=== PATIENT | male | born 1980 | race Caucasian/White ===

== ENCOUNTER 2018-03-26 06:42 | Inpatient (IN) ==
[2018-03-26] MEDS ORDERED: Ondansetron 4 MG/2 ML VIAL IVP ONE ×2 (07:23→09:19)
[2018-03-26] MEDS ORDERED: *HR* FentaNYL (PF) 100 MCG/2 ML VIAL IVP ONE ×2 (07:23→08:03)
--- NOTE | 2018-03-26 07:27 | Emergency Department Note ---
Disposition Clinical Impression: Abdominal pain Qualifiers: Abdominal location: unspecified location Qualified Code(s): R10.9 - Unspecified abdominal pain Cholelithiasis Qualifiers: Cholelithiasis location: gallbladder Cholecystitis presence: without cholecystitis Biliary obstruction: without biliary obstruction Qualified Code(s) : K80.20 - Calculus of gallbladder without cholecystitis without obstruction Leukocytosis Qualifiers: Leukocytosis type: unspecified Qualified Code(s): D72.829 - Elevated white blood cell count, unspecified Disposition: Admitted As Inpatient Condition: Fair Referrals: NONE,PCP [Primary Care Provider] - Mari León [Family Provider] - Forms: ED Satisfaction Letter, Work/School Release Time of Disposition: 10:17 General Adult HPI - General Chief complaint: ED Abdominal Pain Stated complaint: abdominal pains Time Seen by Provider: 03/26/18 06:59 Source: patient Mode of arrival: ambulatory Limitations: no limitations Nursing Notes Reviewed: Yes Vital Signs Reviewed: Yes - History of Present Illness HPI Narrative: Patient is a 37-year-old male that presents the emergency department for abdominal pain. Patient starts that it be N at approximately 0200 this morning. Patient states that is located in the epigastric region and radiates into his back. Patient states that he has never had any pain like this before. Patient states that as a sharp pain. Patient states that he has a history of peptic ulcer disease and GERD. States that this does not feel anything like his previous peptic ulcer. Patient states his pain as a 10 out of 10. Patient states that last night he did have margaritas and went out to dinner around 1900. Patient states that the pain woke him up from sleep. Patient denies any chest pain but states that he has some mild shortness of breath secondary to abdominal pain. Pain Scale: 10 - Related Data Allergies Allergy/AdvReac Type Severity Reaction Status Date / Time Sulfa (Sulfonamide AdvReac See Verified 03/26/18 06:43 Antibiotics) Comments All systems ED: reviewed and negative except as stated. Cardiovascular: Denies: chest pain Respiratory: Reports: dyspnea Gastrointestinal: Reports: abdominal pain, nausea, vomiting Past Medical History - Past Medical History Medical history: Reports: GERD Psychiatric history: Reports: no psych history - Social History Smoking Status: Current some day smoker Smokeless Tobacco Status: No Alcohol use: Reports: none Drug use: Reports: none Physical Exam - General Limitations: no limitations General appearance: alert, in no apparent distress - Head Head exam: atraumatic, normocephalic - Eye Eye exam: Present: normal appearance, EOMI - Neck Neck exam: Present: normal inspection, full ROM, trachea midline - Respiratory Respiratory exam: Present: normal lung sounds bilaterally. Absent: respiratory distress, wheezes - Cardiovascular Cardiovascular exam: Present: regular rate, normal rhythm, normal heart sounds, +S1, +S2 - Abdominal Exam Abdominal exam: Present: soft, tenderness, normal bowel sounds Abdominal tenderness: Present: RUQ, epigastrium, moderate - Neurological Exam Neurological exam: Present: alert, oriented X3 - Psychiatric Psychiatric exam: Present: normal affect, normal mood - Skin Skin exam: Present: warm, dry, intact Course Vital Signs Temperature 97.9 F 03/26/18 06:50 Pulse Rate 94 03/26/18 06:50 Respiratory Rate 20 03/26/18 06:50 Blood Pressure 136/84 03/26/18 06:50 O2 Sat by Pulse Oximetry 100 03/26/18 06:50 Temperature 97.9 F 03/26/18 06:50 Pulse Rate 94 03/26/18 06:50 Respiratory Rate 20 03/26/18 06:50 Blood Pressure 136/84 03/26/18 06:50 O2 Sat by Pulse Oximetry 100 03/26/18 06:50 Oxygen Delivery Oxygen Delivery Room Air Medical Decision Making - [facility] Narrative Medical decision making narrative: Due to the patient presenting to the emergency department with significant abdominal pain in his epigastrium and right upper quadrant history of peptic ulcer disease there is a concern for possible worsening of his peptic ulcer disease, pancreatitis or gallbladder issue. We will obtain basic laboratory testing, EKG and a CT of the abdomen and pelvis. The patient will be provided analgesics and antiemetics here in the emergency department. Patient's CT scan showed cholelithiasis. A gallbladder ultrasound will be obtained. This did show evidence of a cholelithiasis without evidence of cholecystitis. The bile duct is 5.4 mm. I called and spoke with Dr. Nagy the on-call surgeon and he will see the patient in consult. Patient will need to be admitted to the hospital for pain control. Dr Nagy request that the patient be admitted to the medical service. Called and spoke the admitting hospitalist Dr. Watson and he has accepted the patient to their service. Patient be admitted to the hospital this time for further evaluation and management. 0800 hrs.: Patient's labs are coming back. He is scheduled leukocytosis. Still having pain on him another dose of pain medication waiting on CT. Abdomen/Pelvis CT 03/26/18 07:23 IMPRESSION: Cholelithiasis without evidence of acute cholecystitis. Ultrasound could always be considered to further evaluate if clinically indicated. Diffuse hepatic steatosis. Small lymph nodes within the margarita hepatic region nonspecific, possibly related to underlying hepatic dysfunction. No acute intra-abdominal or intrapelvic abnormality noted. D/ / 03/26/2018 08:22:15 Isaac Wright MD / Elizabeth Lazo Interpreting Provider: Isaac Wright MD 0827 hrs.: Since he has not eaten since last evening and the results of the CT work in order an ultrasound on him also. Once those results are back. We can discuss them with surgery. 0925 hrs.: Patient got another dose of pain medication then he is going over for ultrasound. Then we will discuss him with surgery. Most likely he will need admission for pain control. - Medical Records Medical records reviewed: Yes I reviewed the patient's medical records. - Lab Data Lab results reviewed: Yes I reviewed the patient's lab results. Result diagrams: 03/26/18 07:02 03/26/18 07:02 Lab Results 03/26/18 03/26/18 Range/Units 07:02 07:02 WBC 12.0 H (4.3-11.1) K/mcL RBC 5.81 H (4.19-5.50) M/mcL Hgb 16.6 (12.9-16.9) g/dL Hct 51.2 H (37.5-50.1) % MCV 88.1 (83.0-100.0) fL MCH 28.6 (28.0-33.3) pg MCHC 32.4 (31.6-35.5) g/dL RDW 13.5 (11.5-14.5) % Plt Count 241 (140-400) K/mcL MPV 11.2 (9.4-12.4) fL Immature Gran % 0.5 (0-4) % Seg Neutrophils % 65.2 % Lymphocytes % 24.7 % Monocytes % 7.7 % Eosinophils % 1.2 % Basophils % 0.7 % Neutrophils # 7.8 (1.6-8.9) K/mcL Lymphocytes # 3.0 (0.6-4.6) K/mcL Monocytes # 0.9 (0.0-1.3) K/mcL Eosinophils # 0.1 (0.0-0.6) K/mcL Basophils # 0.1 (0.0-0.2) K/mcL Sodium 140 (136-145) mEq/L Potassium 4.3 (3.5-5.1) mEq/L Chloride 104 (98-107) mEq/L Carbon Dioxide 27 (23-29) mEq/L BUN 22 H (6-20) mg/dL Creatinine 1.02 (0.70-1.30) mg/dL Est GFR ( Amer) > 60 (> 60) Est GFR (Non-Af Amer) > 60 (> 60) BUN/Creatinine Ratio 22 (6-26) Glucose 118 H (70-105) mg/dL Calculated Osmolality 294 (280-300) Calcium 9.9 (8.6-10.3) mg/dL Total Bilirubin 0.3 (0.3-1.0) mg/dL Direct Bilirubin 0.1 (0.0-0.2) mg/dL Indirect Bilirubin 0.2 (0.0-1.2) mg/dL AST 21 (13-39) Units/L ALT 74 H (7-52) Units/L Alkaline Phosphatase 74 (34-104) Units/L Serum Total Protein 7.7 (6.4-8.9) g/dL Albumin 4.6 (3.5-5.7) g/dL Globulin 3.1 (2.4-3.5) g/dL Albumin/Globulin Ratio 1.5 (1.1-2.2) Lipase 24 (11-82) Units/L - Radiology Data Radiology results reviewed: Yes I reviewed the patient's radiology results. - EKG Data EKG #1 EKG attestation: Yes I reviewed and interpreted this EKG. EKG results narrative: EKG shows a sinus rhythm at a rate of 89 beats from it, DC interval 140, QRS duration of 90, QTc of 453. No evidence of STEMI on EKG. Attestation Statement - Attestation Attestation: This documentation is done with the assistance of Dragon dictation. Despite efforts made to ensure accuracy, there may be inaccuracies in buckle coverer or spelling and typographical errors. I examined this patient and my medical decision-making was reviewed with the Resident Physician. I agree with the documented findings, disposition and treatment plan as described except to the extent set forth below. Patient seen and evaluated by Dr. Nguyen and myself, I agree with his evaluation and management plan, I supervised the care the patient's stay. Patient resents with epigastric pain with no radiations been on some last evening. No history of abdominal problems. He has no chest pain he has no back pain no difficulty urination. His nonsurgical abdomen but does have tenderness. We will give him something make him more comfortable CT his abdomen check labs and urine and reassess. He is in agreement with plan.
[2018-03-26 07:49] LABS: Alanine Aminotransferase 74 Units/L (7-52); Albumin 4.6 g/dL (3.5-5.7); Albumin/Globulin Ratio 1.5 (1.1-2.2); Alkaline Phosphatase 74 Units/L (34-104); Aspartate Amino Transferase 21 Units/L (13-39); BUN/Creatinine Ratio 22 (6-26); Bilirubin,Direct 0.1 mg/dL (0.0-0.2); Bilirubin,Indirect 0.2 mg/dL (0.0-1.2); Bilirubin,Total 0.3 mg/dL (0.3-1.0); Blood Urea Nitrogen 22 mg/dL (6-20); Calcium 9.9 mg/dL (8.6-10.3); Carbon Dioxide 27 mEq/L (23-29); Chloride 104 mEq/L (98-107); Globulin 3.1 g/dL (2.4-3.5); Glucose 118 mg/dL (70-105); Lipase 24 Units/L (11-82); Osmolality,Calculated 294 (280-300); Potassium 4.3 mEq/L (3.5-5.1); Sodium 140 mEq/L (136-145); Total Protein 7.7 g/dL (6.4-8.9); eGFR For Non-African Americans > 60 (> 60)
[2018-03-26 07:56] LABS: Basophils # 0.1 K/mcL (0.0-0.2); Basophils % 0.7 %; Eosinophils # 0.1 K/mcL (0.0-0.6); Eosinophils % 1.2 %; Hematocrit 51.2 % (37.5-50.1); Hemoglobin 16.6 g/dL (12.9-16.9); Immature Granulocytes % 0.5 % (0-4); Lymphocytes % 24.7 %; Mean Corpuscular HGB Conc 32.4 g/dL (31.6-35.5); Mean Corpuscular Hemoglobin 28.6 pg (28.0-33.3); Mean Corpuscular Volume 88.1 fL (83.0-100.0); Mean Platelet Volume 11.2 fL (9.4-12.4); Monocytes # 0.9 K/mcL (0.0-1.3); Monocytes % 7.7 %; Neutrophils # 7.8 K/mcL (1.6-8.9); Platelet Count 241 K/mcL (140-400); Red Blood Count 5.81 M/mcL (4.19-5.50); Red Cell Distribution Width 13.5 % (11.5-14.5); Segmented Neutrophils % 65.2 %
[2018-03-26] MEDS ORDERED: *HR* HYDROmorphone (PF) 1 MG/ML SYRINGE IVP ONE (09:14)
[2018-03-26] MEDS ORDERED: Hyoscyamine SL 0.125 MG TAB.SUBL SL STA (10:36)
--- NOTE | 2018-03-26 11:05 | Internal Med History&Physical ---
Date of Encounter: 03/26/18 Time of Encounter: 11:00 Internal Medicine - H&P: HPI Chief complaint: abdominal pain History of present illness: Mr. Stacy is a 37 year old male with past medical history of chronic back pain, hiatal hernia came in with complain of abdominal pain. Patient ate around 7 PM yesterday. He started having abdominal pain around 2 AM this morning. Pain is constant and nonradiating most severe in epigastric region about 10 x 10 in intensity. As the pain did not resolve by the morning patient came to ER. Patient has a history of gastric ulcer and hiatal hernia diagnosed in 2010 and he is taking omeprazole for that. Patient does take Aleve to 2 tablets every day for his chronic back pain. Denies any constipation or diarrhea or change in color of stool. Denies any similar pain in the past. The pain woke him from sleep. Denies any chest pain bowel or urinary complaints. No palpitations headache or difficulty breathing or lightheadedness. Patient had one episode of vomiting in ER. Denies any nausea during the time of injury. Denies any fevers or chills. In ER patient was noted to have cholelithiasis without cholecystitis on CAT scan and ultrasound. No free air in the abdomen or ascites. Common bile duct 5.4 mm on ultrasound. Negative Stout sign. Diffuse hepatic steatosis noted. Patient's received Zofran for vomiting. and Dilaudid and fentanyl for pain control Past Med Surg Social Fam HX - Past Medical History Medical history: GERD Additional medical history: hiatal hernia Psychiatric history: no psych history - Past Surgical History Additional surgical history: ear tubes - Social History Smoking Status: Current some day smoker Smokeless Tobacco Status: No Alcohol use: none Drug use: none Internal Medicine - H&P: Meds 3 Allergy/AdvReac Type Severity Reaction Status Date / Time Sulfa (Sulfonamide AdvReac See Verified 03/26/18 06:43 Antibiotics) Comments All Systems PM: A 10-system review of systems was performed and is negative for pertinent findings except as documented above in the HPI. - Constitutional Vitals: Temp Pulse Resp BP Pulse Ox 97.9 F 94 20 136/84 100 03/26/18 06:50 03/26/18 06:50 03/26/18 06:50 03/26/18 06:50 03/26/18 06:50 General appearance: Present: mild distress, A&O X 3 Exam: Const: Vital signs listed above. Morbidly obese. Occasionally crying due to pain. Eyes: Sclera white, conjunctiva clear, lids are without lag. PERRLA. Pupils and irises are equal and round without defect. ENT: grossly normal hearing. Oropharanx clear and moist without erythema. Gums pink, good dentition. Lymph/Neck: No masses, thyromegaly, or abnormal cervical notes. No bruit. Tracheal midline. Cardio: RRR, Normal S1, S2 w/o murmurs, rubs or gallops. Skin warm and dry. No peripheral edema. Respiratory: Chest symmetrical, respirations non-labored. No dullness or flatness. Clear bilaterally to auscultation, non-tender to palpitation. Musculo: No deformity or scoliosis noted. No tian gait disturbance noted. No cyanosis or edema. Pulses normal in all 4 extremities. No atrophy or abnormal movements. Appropriate muscle strength bilaterally. Neurologic: No focal deficits, cranial nerves II-XII grossly intact with normal sensation, reflexes, coordination, muscle strength and tone. GI/Abdomen: Soft, mild diffuse tenderness with maximally tender in epigastric region. Negative murphys sign, non distended, no hepatosplemomegaly, normal bowel sounds, no masses noted. Internal Med - H&P Results - Labs CBC & Chem 7: 03/26/18 07:02 03/26/18 07:02 Labs: Short CBC 03/26/18 Range/Units 07:02 WBC 12.0 H (4.3-11.1) K/mcL Hgb 16.6 (12.9-16.9) g/dL Hct 51.2 H (37.5-50.1) % Plt Count 241 (140-400) K/mcL Neutrophils # 7.8 (1.6-8.9) K/mcL BMP 03/26/18 07:02 Sodium 140 Potassium 4.3 Chloride 104 Carbon Dioxide 27 BUN 22 H Creatinine 1.02 Glucose 118 H Calcium 9.9 Liver Function 03/26/18 Range/Units 07:02 Total Bilirubin 0.3 (0.3-1.0) mg/dL Direct Bilirubin 0.1 (0.0-0.2) mg/dL AST 21 (13-39) Units/L ALT 74 H (7-52) Units/L Alkaline Phosphatase 74 (34-104) Units/L Albumin 4.6 (3.5-5.7) g/dL - Impressions ITS Impressions Abdomen/Pelvis CT 03/26/18 07:23 IMPRESSION: Cholelithiasis without evidence of acute cholecystitis. Ultrasound could always be considered to further evaluate if clinically indicated. Diffuse hepatic steatosis. Small lymph nodes within the margarita hepatic region nonspecific, possibly related to underlying hepatic dysfunction. No acute intra-abdominal or intrapelvic abnormality noted. D/ / 03/26/2018 08:22:15 Isaac Wright MD / Elizabeth Lazo Interpreting Provider: Isaac Wright MD Gallbladder Ultrasound 03/26/18 08:25 IMPRESSION: Cholelithiasis without sonographic evidence for acute cholecystitis. Hepatic steatosis. D/ / Kevin Boyle MD / Kevin Boyle MD Interpreting Provider: Kevin Boyle MD - Assessment and plan (1) Abdominal pain Current Visit: Yes Status: Acute Assessment and plan: Patient with abdominal pain with imaging findings of cholelithiasis without cholecystitis. ALT of 74. Lipase normal. - Pain possibly from cholelithiasis. However gastritis and gastric ulcer still in differential given his NSAID use and epigastric pain. - Pain control with Tylenol and Dilaudid as needed. When necessary Zofran for nausea - Start IV Protonix - Surgery consulted. Qualifiers: Abdominal location: epigastric Qualified Code(s): R10.13 - Epigastric pain (2) Cholelithiasis Current Visit: Yes Status: Acute Assessment and plan: As above Qualifiers: Cholelithiasis location: gallbladder Cholecystitis presence: without cholecystitis Biliary obstruction: without biliary obstruction Qualified Code(s): K80.20 - Calculus of gallbladder without cholecystitis without obstruction (3) Leukocytosis Current Visit: Yes Status: Acute Assessment and plan: - Likely reactive. No other signs of infectious disease. We will monitor for now. Qualifiers: Leukocytosis type: unspecified Qualified Code(s): D72.829 - Elevated white blood cell count, unspecified (4) DVT prophylaxis Current Visit: Yes Status: Acute (5) Morbid obesity Current Visit: Yes Status: Acute Assessment and plan: - Counseled on weight loss and lifestyle changes. - Time Spent With Patient Total time spent is greater than 50% in coordination of care (as documented) at patient's floor/unit and/or counseling patient:
[2018-03-26 11:15] LABS: Cholesterol 209 mg/dL (< 200); HDL Cholesterol 52 mg/dL (40-59); LDL Cholesterol,Calculated 129 mg/dL (0-99); Triglycerides 142 mg/dL (< 150)
[2018-03-26] MEDS ORDERED: Pantoprazole 40 MG VIAL IVP SCH (11:15)
[2018-03-26] MEDS ORDERED: Ondansetron 4 MG/2 ML VIAL IVP PRN ×2 (12:22→21:44)
[2018-03-26] MEDS ORDERED: OXYCODONE Oral CONC 10 MG/0.5 ML ORAL.SYG SL PRN (12:22)
[2018-03-26 12:27] LABS: Bilirubin,Urine Negative (Negative); Blood,Urine Negative (Negative); Clarity,Urine Clear (Clear); Color,Urine Yellow (Yellow); Glucose,Urine (UA) Normal (Normal); Ketones,Urine Negative (Negative); Leukocyte Esterase,Urine Negative (Negative); Nitrite,Urine Negative (Negative); PH,Urine 6.5 pH Units (5.0-8.0); Protein,Urine Negative (Neg-Trace); Specific Gravity,Urine > 1.030 (1.010-1.025); Urobilinogen,Urine Normal (Normal)
[2018-03-26] MEDS ORDERED: D5% in 0.45% NACL w KCl 20 MEQ/1,000 ML MLS IVC SCH (12:30)
--- NOTE | 2018-03-26 12:30 | General Surgery Consult Note ---
Date of Encounter: 03/26/18 Time of Encounter: 12:27 Assessment and Plan (1) Cholelithiasis Current Visit: Yes Status: Acute 37M with symptomatic cholelithiasis; non peritoneal, non septic; NPO IVF no abx needd pain control will attempt cholecystectomy today pending OR schedule/availability. The patient is not septic so if time and availability becomes an issue, once his pain is controlled, we can schedule him as an outpatient serial exams cares per primary team Qualifiers: Cholelithiasis location: gallbladder Cholecystitis presence: without cholecystitis Biliary obstruction: without biliary obstruction Qualified Code(s): K80.20 - Calculus of gallbladder without cholecystitis without obstruction History of Present Illness Consult date: 03/26/18 Reason for consult: gallstones Requesting physician: Cathy Watson History of present illness: 37M h/o obesity, hiatal hernia, gerd, OA and chronic back pain who presents with onset of abdominal pain beginning at about 2am. The pain is sharp, localized to the epigastric region with associated nausea and anorexia. No reports of any fevers, chills, nor other systemic symptoms. The patient has never experienced a pain like this before. Imaging was obtained, CT and US which were reviewed and interpreted by me in combination with radiology reads. There is no detection of acute cholecystitis, but the presence of gallstones is noted. However, when I saw the patient in the trauma bay, he was tearful and in obvious pain, making me suspect that the imaging may be under estimating the extent of his disease. Past Med Surg Social Fam HX - Past Medical History Medical history: GERD Additional medical history: hiatal hernia Psychiatric history: no psych history - Past Surgical History Additional surgical history: ear tubes - Social History Smoking Status: Current some day smoker Smokeless Tobacco Status: No Alcohol use: none Drug use: none - Additional Family History Additional family history: non contributory Medications and Allergies Loratadine [Claritin] 10 mg PO DAILY 03/26/18 [History] Multivitamin [One Daily Multivitamin] 1 tab PO DAILY 03/26/18 [History] Naproxen Sodium [Aleve] 440 mg PO QAM 03/26/18 [History] Omeprazole Magnesium [Prilosec Otc] 20 mg PO DAILY 03/26/18 [History] guaiFENesin [Guaifenesin] 400 mg PO DAILY 03/26/18 [History] 3 Allergy/AdvReac Type Severity Reaction Status Date / Time Sulfa (Sulfonamide AdvReac Hives Verified 03/26/18 12:11 Antibiotics) Review of Systems All systems PM: 12 point ROS negative besides the findings in the HPI General Surgery Exam Initial Vital Signs Temp Pulse Resp BP Pulse Ox 97.9 F 94 20 136/84 100 03/26/18 06:50 03/26/18 06:50 03/26/18 06:50 03/26/18 06:50 03/26/18 06:50 - General physical appearance no distress, other (tearful) - Eyes other (no scleral icterus) - ENT normocephalic - Neck no lymphadectomy - Respiratory normal expansion, normal respiratory effort - Cardiovascular Cardiovascular exam: Present: RRR - Abdomen Abdomen general surgery: Present: soft (obese), tender ((-)dick's sign) - Integumentary Integumentary general surgery: Present: warm and dry, no abnormal pigmentation - Neurologic Present: CN 2-12 grossly intact - Musculoskeletal Present: normal posture - Psychiatric Psychiatric general surgery: Present: A&Ox3 Exam Initial Vital Signs Temp Pulse Resp BP Pulse Ox 97.9 F 94 20 136/84 100 03/26/18 06:50 03/26/18 06:50 03/26/18 06:50 03/26/18 06:50 03/26/18 06:50 Results - Labs 03/26/18 07:02 03/26/18 07:02 Abnormal lab results WBC 12.0 K/mcL (4.3-11.1) H 03/26/18 07:02 RBC 5.81 M/mcL (4.19-5.50) H 03/26/18 07:02 Hct 51.2 % (37.5-50.1) H 03/26/18 07:02 BUN 22 mg/dL (6-20) H 03/26/18 07:02 Glucose 118 mg/dL (70-105) H 03/26/18 07:02 ALT 74 Units/L (7-52) H 03/26/18 07:02 Cholesterol 209 mg/dL (< 200) H 03/26/18 07:02 LDL Cholesterol, Calc 129 mg/dL (0-99) H 03/26/18 07:02 Diabetes panel 03/26/18 Range/Units 07:02 Sodium 140 (136-145) mEq/L Potassium 4.3 (3.5-5.1) mEq/L Chloride 104 (98-107) mEq/L Carbon Dioxide 27 (23-29) mEq/L BUN 22 H (6-20) mg/dL Creatinine 1.02 (0.70-1.30) mg/dL Glucose 118 H (70-105) mg/dL Calcium 9.9 (8.6-10.3) mg/dL AST 21 (13-39) Units/L ALT 74 H (7-52) Units/L Alkaline Phosphatase 74 (34-104) Units/L Albumin 4.6 (3.5-5.7) g/dL Triglycerides 142 (< 150) mg/dL HDL Cholesterol 52 (40-59) mg/dL Calcium panel 03/26/18 Range/Units 07:02 Calcium 9.9 (8.6-10.3) mg/dL Albumin 4.6 (3.5-5.7) g/dL Pituitary panel 03/26/18 Range/Units 07:02 Sodium 140 (136-145) mEq/L Potassium 4.3 (3.5-5.1) mEq/L Chloride 104 (98-107) mEq/L Carbon Dioxide 27 (23-29) mEq/L BUN 22 H (6-20) mg/dL Creatinine 1.02 (0.70-1.30) mg/dL Glucose 118 H (70-105) mg/dL Calcium 9.9 (8.6-10.3) mg/dL Adrenal panel 03/26/18 Range/Units 07:02 Sodium 140 (136-145) mEq/L Potassium 4.3 (3.5-5.1) mEq/L Chloride 104 (98-107) mEq/L Carbon Dioxide 27 (23-29) mEq/L BUN 22 H (6-20) mg/dL Creatinine 1.02 (0.70-1.30) mg/dL Glucose 118 H (70-105) mg/dL Calcium 9.9 (8.6-10.3) mg/dL Total Bilirubin 0.3 (0.3-1.0) mg/dL AST 21 (13-39) Units/L ALT 74 H (7-52) Units/L Alkaline Phosphatase 74 (34-104) Units/L Albumin 4.6 (3.5-5.7) g/dL All other labs normal. - Imaging CT scan - abdomen: report reviewed, image reviewed CT scan - pelvis: report reviewed, image reviewed US - abdomen: report reviewed, image reviewed Consult Discharge Plan - Plan Referrals: NONE,PCP [Primary Care Provider] - Mari León [Family Provider] -
[2018-03-26] MEDS ORDERED: Piperacillin/Tazobactam 3.375 GM in 0.9 % Sodium Chloride Mini Bag 100 ML IVPB SCH (13:00)
--- NOTE | 2018-03-26 13:29 | Electrocardiograph Report ---
[facility] [employer] [facility] Test Date: 2018-03-26 Pat Name: Lukas Stacy Department: [id number] Room: 3A45 Gender: M Math Coach: : 1980 Requested By: Allan Ramirez Order Number: [id number] Reading MD: Justo Sigala Measurements Intervals [place] Rate: 89 P: 24 SC: 148 QRS: 21 QRSD: 90 T: 17 QT: 372 QTc: 453 Interpretive Statements Sinus rhythm Low voltage, precordial leads Electronically Signed On 03-26-2018 13:27:26 EDT by Justo Sigala
[2018-03-26] MEDS ORDERED: *HR* Heparin 5,000 UNIT/ML VIAL SQ SCH (14:00)
--- NOTE | 2018-03-26 16:59 | Anesthesia Evaluation PreOp ---
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: Denies Any Significant HX Other Medical History: Denies Any Significant HX, Other (morbid obesity) Anesthesia History: No Prior Anesthetic Complications, Past Anesthesia Alcohol Use: none Drug use: none Medications and Allergies Loratadine [Claritin] 10 mg PO DAILY 03/26/18 [History] Multivitamin [One Daily Multivitamin] 1 tab PO DAILY 03/26/18 [History] Naproxen Sodium [Aleve] 440 mg PO QAM 03/26/18 [History] Omeprazole Magnesium [Prilosec Otc] 20 mg PO DAILY 03/26/18 [History] guaiFENesin [Guaifenesin] 400 mg PO DAILY 03/26/18 [History] 3 Allergy/AdvReac Type Severity Reaction Status Date / Time Sulfa (Sulfonamide AdvReac Hives Verified 03/26/18 12:11 Antibiotics) - Meds/Allergy Pre-op Review Medications Reviewed: Yes Allergies Reviewed: Yes Beta Blockers on Current Med List: No Anesthesia Results - Labs 03/26/18 07:02 03/26/18 07:02 - Imaging EKG: report reviewed (sinus rhythm) Anesthesia Exam Selected Entries 03/26/18 14:30 Temperature 98.3 F Pulse Rate 83 Blood Pressure 108/71 Weight: 157 kg. NPO (# of Hours): over 8 hours - HEENT Pupil (Motor): Pupils equal Mallampati: III Teeth: Normal Oral Opening: Less than or equal to 3 - Cardiac Rhythm: Regular Murmur: None - Pulmonary Breath Sounds: bilateral Clear Respiratory Effort: Symmetrical Anesthesia Assess/Plan ASA Score: 3 Modified Marsha Scale for Level of Consciousness: Anixous, agitated or restless Anesthetic Plan: General Monitoring Plan: Standard Monitors Recovery Plan: PACU (Discussed GA, risks. Agreed to proceed.)
[2018-03-26] MEDS ORDERED: *HR* FentaNYL (PF) 100 MCG/2 ML VIAL ONE (17:02)
[2018-03-26] MEDS ORDERED: Neostigmine Methylsulfate 3 MG/3 ML SYRINGE ONE (17:02)
[2018-03-26] MEDS ORDERED: Lidocaine -MPF 2% 2 ML VIAL ONE (17:02)
[2018-03-26] MEDS ORDERED: *HR* Succinylcholine 200 MG/10 ML VIAL IVP ONE (17:02)
[2018-03-26] MEDS ORDERED: *HR* Rocuronium Bromide 50 MG/5 ML VIAL ONE (17:02)
[2018-03-26] MEDS ORDERED: Dexamethasone 4 MG/ML VIAL ONE (17:02)
[2018-03-26] MEDS ORDERED: *HR* Midazolam HCl 2 MG/2 ML VIAL ONE (17:02)
[2018-03-26] MEDS ORDERED: Lidocaine -MPF 4% 5 ML AMPUL ONE (17:02)
[2018-03-26] MEDS ORDERED: Ondansetron 4 MG/2 ML VIAL ONE (17:02)
[2018-03-26] MEDS ORDERED: *HR* Propofol 200 MG/20 ML VIAL IVP ONE (17:02)
[2018-03-26] MEDS ORDERED: Isovue-300 50 ML VIAL IVP ONE (17:03)
[2018-03-26] MEDS ORDERED: *HR* HYDROmorphone 2 MG/ML SYRINGE ONE (17:19)
[2018-03-26] MEDS ORDERED: *HR* Promethazine 25 MG/ML VIAL IVP PRN (18:23)
[2018-03-26] MEDS: *HR* HYDROmorphone (PF) 1 MG/ML SYRINGE IVP PRN (21:02)
--- NOTE | 2018-03-26 21:22 | Operative Note ---
Date of procedure: 03/26/18 Pre-op diagnosis: symptomatic cholelithiasis Post-op diagnosis: other (acute cholecystitis, choledocholithiasis) Procedure: robotic cholecystectomy with intraoperative cholangiogram Implants: none Complications: none Anesthesia: GETA Local Anesthetics: 0.5% Sensorcaine HCL SubQ (cc) Surgeon: Ben Nagy Was there an pharmacy innovation assistant present: Yes Chain Maker: Manda Shukla Estimated blood loss (cc): 50 Specimen: gallbladder and contents Condition: stable Disposition: PACU Procedure in Detail: The patient was brought into the operating room suite and was placed in the supine position. Mechanical DVT prophylaxis was applied. A time-in was conducted. The patient underwent smooth induction of anesthesia. Preoperative antibiotics were given. The patient was prepped and draped in the usual fashion. A time-out was held identifying the correct patient, pathology, and procedure. Everyone was in agreement and we began the procedure. Incision to Dissection I started by creating a 12mm supraumbilical incision. Via open Bandar technique I did enter into the abdomen. I inserted the 12mm trocar followed by the 30 degree camera, ensured that I did not cause intraabdominal injury upon entry, and quickly identified the gallbladder. I created a 5mm incisions one handbreadth to the left and right of the umbilical incision and an pharmacy innovation assistant port along the R anterior axillary line. I then docked the robot in the usual fashion. Using laparoscopic graspers I managed to elevate the gallbladder above the liver. At the Console I grasp the edge of the gallbladder to retract laterally. Using the Maryland instrument as well as the hook-electrocautery, It should be stated that there was significant edema, with thickening of the gallbladder wall. Due to the amount of inflammation, there was a moderate amount of oozng. I dissected out the cystic duct and the cystic artery. The cystic artery coursed posteriorly within calot's triangIe and back anteriorly at the junction of the infundibulum and the cystic duct. There was significant inflammation and edema so it took time to fully dissect out the artery to completely visualize it scourse. Because of its position, I made the decision to excise the artery first (two clips on either side). This allowed visualization of the beginning of the cystic duct. excised the posterior tissue to visualize the liver. I was able to clearly visualize the critical view of safety. I then undocked the robot to perform an intraoperative cholangiogram with the Shelley instrument and angiocatheter. I make a small ductotomy and inserted the catheter using the maryland instrument. It should be stated that i first has to milk stones from the cystic duct as it made it difficult to place the catheter. I then secured it in place with the metal clips. The cholangiogram demonstrated contrast highlighting the secondary and tertiary branches of the biliary tree. I was also able to visualize a few small filling defects on the imaging study consistent with stones I then concluded the cholangiogram and docked the robot again. Critical view of Safety to Excison of the gallbladder I then clipped both structures using plastic clips, two on the stay side, one on the specimen side. Using robotic scissors, I cut between the clip on the specimen side and the first clip on the stay side. Then using tension and counter-tension, I used the electrocautery to excise the gallbladder off of the liver bed. Before complete excision, I evaluated the liver bed to ensure there 1.) there was no bleeding, 2. No excessive bile leakage, and 3.) to evaluate my clips. There was no bleeding, bile leakage, and the clips were all the way across both duct and artery. Removal of gallbladder to Closure After undocking the robot, I inserted the endocatch bag into the umbilical port. I placed the specimen into the bag and retrieved it through the umbilical port. i then irrgiated the liver bed and above the liver before suctioning both irrigation fluid and air. I removed the 5mm ports, turned off the insufllation, then removed the 12mm umbilical port. I then close the umbilical fascia a vicryl suture in a figure of 8 fashion. All incisions were closed with interrupted 4-0 monocryl and sealed with dermabond. The patient tolerated the procedure well and went back to PACU in stable condition.
[2018-03-26] MEDS: OXYCODONE Oral CONC 10 MG/0.5 ML ORAL.SYG SL PRN (21:53)
[2018-03-26] MEDS: D5% in 0.45% NACL w KCl 20 MEQ/1,000 ML MLS IVC SCH (22:35)
[2018-03-26] MEDS: *HR* Heparin 5,000 UNIT/ML VIAL SQ SCH (22:36)
[2018-03-26] MEDS: Piperacillin/Tazobactam 3.375 GM in 0.9 % Sodium Chloride Mini Bag 100 ML IVPB SCH (22:36)
[2018-03-26 22:56] LABS: Alanine Aminotransferase 108 Units/L (7-52); Albumin/Globulin Ratio 1.5 (1.1-2.2); Alkaline Phosphatase 67 Units/L (34-104); Aspartate Amino Transferase 78 Units/L (13-39); BUN/Creatinine Ratio 18 (6-26); Bilirubin,Total 0.5 mg/dL (0.3-1.0); Blood Urea Nitrogen 16 mg/dL (6-20); Calcium 8.9 mg/dL (8.6-10.3); Carbon Dioxide 26 mEq/L (23-29); Chloride 103 mEq/L (98-107); Globulin 2.6 g/dL (2.4-3.5); Glucose 153 mg/dL (70-105); Osmolality,Calculated 286 (280-300); Potassium 4.4 mEq/L (3.5-5.1); Sodium 136 mEq/L (136-145); Total Protein 6.6 g/dL (6.4-8.9); eGFR For Non-African Americans > 60 (> 60)
--- NOTE | 2018-03-26 23:08 | Anesthesia Evaluation Post Op ---
Date of Encounter: 03/26/18 Time of Encounter: 21:28 - Discharge PostOp Status: Transfer Patient to floor (Patient's vital signs have been reviewed. Patient is stable postoperatively and has adequately recovered from anesthesia. Patient is determined to have stable airway patency and respiratory function including respiratory rate and oxygen saturation. Patient has a stable heart rate, blood pressure and adequate hydration. Patients mental status is acceptable. Patients temperature is appropriate. Pain and nausea are adequately controlled.)
[2018-03-27] MEDS: OXYCODONE Oral CONC 10 MG/0.5 ML ORAL.SYG SL PRN ×5 (02:04→21:00)
[2018-03-27] MEDS: *HR* Heparin 5,000 UNIT/ML VIAL SQ SCH ×3 (06:01→21:00)
[2018-03-27] MEDS: Pantoprazole 40 MG VIAL IVP SCH (06:01)
[2018-03-27] MEDS: D5% in 0.45% NACL w KCl 20 MEQ/1,000 ML MLS IVC SCH ×2 (06:02→20:11)
[2018-03-27 07:01] LABS: Alanine Aminotransferase 93 Units/L (7-52); Albumin 3.8 g/dL (3.5-5.7); Albumin/Globulin Ratio 1.6 (1.1-2.2); Alkaline Phosphatase 59 Units/L (34-104); Aspartate Amino Transferase 68 Units/L (13-39); BUN/Creatinine Ratio 16 (6-26); Bilirubin,Total 0.7 mg/dL (0.3-1.0); Blood Urea Nitrogen 13 mg/dL (6-20); Carbon Dioxide 24 mEq/L (23-29); Chloride 105 mEq/L (98-107); Globulin 2.4 g/dL (2.4-3.5); Glucose 130 mg/dL (70-105); Osmolality,Calculated 288 (280-300); Potassium 4.2 mEq/L (3.5-5.1); Sodium 138 mEq/L (136-145); Total Protein 6.2 g/dL (6.4-8.9); eGFR For Non-African Americans > 60 (> 60)
[2018-03-27] MEDS: Piperacillin/Tazobactam 3.375 GM in 0.9 % Sodium Chloride Mini Bag 100 ML IVPB SCH ×2 (07:38→16:31)
--- NOTE | 2018-03-27 08:34 | General Surgery Progress Note ---
Date of Encounter: 03/27/18 Time of Encounter: 08:32 - Assessment and Plan (1) Cholelithiasis Current Visit: Yes Status: Acute 37M POD #1 s/p monet charlene with IOC 2/2 acute cholecystitis, choledocholithiasis ( not appreciated until IOC); retained stone NPO IVF abx ERCP today with GI Qualifiers: Cholelithiasis location: gallbladder Cholecystitis presence: without cholecystitis Biliary obstruction: without biliary obstruction Qualified Code(s): K80.20 - Calculus of gallbladder without cholecystitis without obstruction Subjective Patient reports: no new complaints, feels better, still having pain, pain is less Objective Vital Signs - Last 8 Hours Temp Pulse Resp BP Pulse Ox 03/27/18 06:43 98.7 F 77 18 110/74 93 03/27/18 03:36 98.1 F 91 17 124/82 96 03/27/18 00:37 97.9 F 108 16 106/63 Intake and Output 03/26/18 03/27/18 03/27/18 23:59 07:59 15:59 Intake Total 0 / 0 1100 / 1100 Output Total 50 / 50 1400 / 1400 Balance -50 / -50 -300 / -300 Intake: IV Fluids 1100 / 1100 KCl 20mEq IN D5%-0.45 NACL 20 1000 / 1000 meq In 1,000 ml @ 125 mls/hr IVC .Q8H RISHI Rx#:[id number] Zosyn 3.375 GM In 0.9 % Sodium 100 / 100 Chloride (Mini-Bag +) 100 ML @ 25 mls/hr IVPB Q8HR RISHI Rx#: [id number] Oral 0 / 0 Output: Urine 0 / 0 1400 / 1400 Estimated Blood Loss 50 / 50 Other: Weight 162 kg Blood Glucose* 129 Patient Weight 03/27/18 23:59 Weight 162 kg - General physical appearance no distress - Respiratory normal expansion, normal respiratory effort - Cardiovascular Cardiovascular exam: Present: RRR - Abdomen Abdomen: Present: soft, tender (along incisions; ) - Incision Incision: Present: clean and dry, intact - Integumentary no rash - Neurologic CN 2-12 grossly intact - Labs 03/26/18 07:02 03/27/18 05:17 Diabetes panel 03/26/18 03/27/18 Range/Units 22:15 05:17 Sodium 136 138 (136-145) mEq/L Potassium 4.4 4.2 (3.5-5.1) mEq/L Chloride 103 105 (98-107) mEq/L Carbon Dioxide 26 24 (23-29) mEq/L BUN 16 13 (6-20) mg/dL Creatinine 0.87 0.79 (0.70-1.30) mg/dL Glucose 153 H 130 H (70-105) mg/dL Calcium 8.9 (8.6-10.3) mg/dL AST 78 H 68 H (13-39) Units/L ALT 108 H 93 H (7-52) Units/L Alkaline Phosphatase 67 59 (34-104) Units/L Albumin 4.0 3.8 (3.5-5.7) g/dL Calcium panel 03/26/18 03/27/18 Range/Units 22:15 05:17 Calcium 8.9 (8.6-10.3) mg/dL Albumin 4.0 3.8 (3.5-5.7) g/dL Pituitary panel 03/26/18 03/27/18 Range/Units 22:15 05:17 Sodium 136 138 (136-145) mEq/L Potassium 4.4 4.2 (3.5-5.1) mEq/L Chloride 103 105 (98-107) mEq/L Carbon Dioxide 26 24 (23-29) mEq/L BUN 16 13 (6-20) mg/dL Creatinine 0.87 0.79 (0.70-1.30) mg/dL Glucose 153 H 130 H (70-105) mg/dL Calcium 8.9 (8.6-10.3) mg/dL Adrenal panel 03/26/18 03/27/18 Range/Units 22:15 05:17 Sodium 136 138 (136-145) mEq/L Potassium 4.4 4.2 (3.5-5.1) mEq/L Chloride 103 105 (98-107) mEq/L Carbon Dioxide 26 24 (23-29) mEq/L BUN 16 13 (6-20) mg/dL Creatinine 0.87 0.79 (0.70-1.30) mg/dL Glucose 153 H 130 H (70-105) mg/dL Calcium 8.9 (8.6-10.3) mg/dL Total Bilirubin 0.5 0.7 (0.3-1.0) mg/dL AST 78 H 68 H (13-39) Units/L ALT 108 H 93 H (7-52) Units/L Alkaline Phosphatase 67 59 (34-104) Units/L Albumin 4.0 3.8 (3.5-5.7) g/dL Consult Discharge Plan - Plan Referrals: NONE,PCP [Primary Care Provider] - Mari León [Family Provider] -
[2018-03-27 09:00] LABS: Calcium 8.7 mg/dL (8.6-10.3)
--- NOTE | 2018-03-27 10:47 | Internal Med Progress Note ---
Hospitalist Progress Note - Encounter Date of Encounter: 03/27/18 Time of Encounter: 10:47 - Subjective Interval History: Pt having significant pain post op. He denies nausea or vomiting. He denies fever, chills, N/V. He denies CP or SOB. 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 - Exam Vitals: Temp Pulse Resp BP Pulse Ox 98.6 F 82 15 110/74 95 03/27/18 10:41 03/27/18 10:41 03/27/18 10:41 03/27/18 10:41 03/27/18 10:41 Exam: Const: Vital signs listed above. Morbidly obese. Occasionally crying due to pain. Eyes: Sclera white, conjunctiva clear, lids are without lag. PERRLA. Pupils and irises are equal and round without defect. ENT: grossly normal hearing. Oropharanx clear and moist without erythema. Gums pink, good dentition. Lymph/Neck: No masses, thyromegaly, or abnormal cervical notes. No bruit. Tracheal midline. Cardio: RRR, Normal S1, S2 w/o murmurs, rubs or gallops. Skin warm and dry. No peripheral edema. Respiratory: Chest symmetrical, respirations non-labored. No dullness or flatness. Clear bilaterally to auscultation, non-tender to palpitation. Musculo: No deformity or scoliosis noted. No tian gait disturbance noted. No cyanosis or edema. Pulses normal in all 4 extremities. No atrophy or abnormal movements. Appropriate muscle strength bilaterally. Neurologic: No focal deficits, cranial nerves II-XII grossly intact with normal sensation, reflexes, coordination, muscle strength and tone. GI/Abdomen: Soft, mild diffuse tenderness with maximally tender in RUQ region. Negative murphys sign, non distended, no hepatosplemomegaly, normal bowel sounds , no masses noted. - Assessment and Plan (1) Choledocholithiasis Current Visit: Yes Status: Acute Assessment and Plan: Pt having significant pain postoperatively. Continue prn pain control. GI plans to proceed with ERCP today, 03/27/18. Will reassess in am. (2) Cholelithiasis Current Visit: Yes Status: Acute Assessment and Plan: Pt is s/p monet charlene with IOC secondary to acute cholecystitis, choledocholitithiasis ( not appreaciated until IOC) Continue NPO, IVF,and antibiotic. GI consulted for possible ERCP. (3) Leukocytosis Current Visit: Yes Status: Acute Assessment and Plan: WBC 12.0 on admission. Will check today and monitor daily. (4) Morbid obesity Current Visit: Yes Status: Acute - Summary of Assessment and Plan Summary of Assessment and Plan: Mr. Stacy is a 37 year old male with past medical history of chronic back pain, hiatal hernia came in with complain of abdominal pain. Patient ate around 7 PM yesterday. He started having abdominal pain around 2 AM this morning. Pain is constant and nonradiating most severe in epigastric region about 10 x 10 in intensity. As the pain did not resolve by the morning patient came to ER. Patient has a history of gastric ulcer and hiatal hernia diagnosed in 2010 and he is taking omeprazole for that. Patient does take Aleve to 2 tablets every day for his chronic back pain. - Time Spent with Patient Total time spent is greater than 50% in coordination of care (as documented) at patient's floor/unit and/or counseling patient: 25 - 35 minutes Plan of Care Discussed with: patient Internal Medicine: Result - Labs CBC & Chem 7: 03/26/18 07:02 03/27/18 05:17 Labs: BMP 03/26/18 03/27/18 22:15 05:17 Sodium 136 138 Potassium 4.4 4.2 Chloride 103 105 Carbon Dioxide 26 24 BUN 16 13 Creatinine 0.87 0.79 Glucose 153 H 130 H Calcium 8.9 8.7 Liver Function 03/26/18 03/27/18 Range/Units 22:15 05:17 Total Bilirubin 0.5 0.7 (0.3-1.0) mg/dL AST 78 H 68 H (13-39) Units/L ALT 108 H 93 H (7-52) Units/L Alkaline Phosphatase 67 59 (34-104) Units/L Albumin 4.0 3.8 (3.5-5.7) g/dL - Impressions Impressions Cholangiogram,Operative 03/26/18 19:15 IMPRESSION: Bile duct dilatation with suggestion of distal CBD choledocholithiasis. RECOMMENDATIONS: Further evaluation with MRCP. D/ / Julia Elise MD / Julia Elise MD Interpreting Provider: Julia Elise MD Consult Discharge Plan - Plan Referrals: NONE,PCP [Primary Care Provider] - Mari Lenó [Family Provider] - (2) Cholelithiasis Qualifiers: Cholelithiasis location: gallbladder Cholecystitis presence: without cholecystitis Biliary obstruction: without biliary obstruction Qualified Code( s): K80.20 - Calculus of gallbladder without cholecystitis without obstruction (3) Leukocytosis Qualifiers: Leukocytosis type: unspecified Qualified Code(s): D72.829 - Elevated white blood cell count, unspecified
[2018-03-27] MEDS: Ketorolac 15 MG/ML VIAL IVP SCH ×2 (11:06→18:31)
[2018-03-27] MEDS ORDERED: Dexamethasone 4 MG/ML VIAL ONE (12:28)
[2018-03-27] MEDS ORDERED: Lidocaine -MPF 2% 2 ML VIAL ONE (12:28)
[2018-03-27] MEDS ORDERED: *HR* Propofol 200 MG/20 ML VIAL IVP ONE (12:28)
[2018-03-27] MEDS ORDERED: Lidocaine -MPF 4% 5 ML AMPUL ONE (12:28)
[2018-03-27] MEDS ORDERED: *HR* FentaNYL (PF) 100 MCG/2 ML VIAL ONE (12:28)
[2018-03-27] MEDS ORDERED: *HR* Succinylcholine 200 MG/10 ML VIAL IVP ONE (12:28)
[2018-03-27] MEDS ORDERED: Ondansetron 4 MG/2 ML VIAL ONE (12:28)
[2018-03-27] MEDS: Acetaminophen IV 1,000 MG/100 ML INFUS..BTL IVPB SCH ×2 (12:46→18:31)
--- NOTE | 2018-03-27 12:53 | Gastroenterology Consult Note ---
<Jasmin Ramirez - Last Filed: 03/27/18 12:48> Date of Encounter: 03/27/18 Time of Encounter: 11:00 - Assessment and plan (1) Choledocholithiasis Current Visit: Yes Status: Acute Assessment and plan: Pt having significant pain postoperatively. Will proceed with ERcP today. Risks including bleeding, perforation, infection and pancreatitis discussed with pt and his mother and they both voice understanding. (2) Cholelithiasis Current Visit: Yes Status: Acute Qualifiers: Cholelithiasis location: gallbladder Cholecystitis presence: without cholecystitis Biliary obstruction: without biliary obstruction Qualified Code(s): K80.20 - Calculus of gallbladder without cholecystitis without obstruction - Time Spent With Patient Total time spent is greater than 50% in coordination of care (as documented) at patient's floor/unit and/or counseling patient: GI History of Present Illness - Data of Consult Patient: new to practice Consult date: 03/27/18 Requesting Physician: Ben Nagy MD - Consult Narrative Reason for consult: choledocholithiasis History of present illness: Mr. Stacy is a 37 year old male with past medical history of chronic back pain, hiatal hernia came in with complain of abdominal pain. Patient ate around 7 PM yesterday. He started having severe abdominal pain around 2 AM. Patient has a history of gastric ulcer and hiatal hernia diagnosed in 2010 and he is taking omeprazole for that. Patient does take Aleve to 2 tablets every day for his chronic back pain. Denies any constipation or diarrhea or change in color of stool. Denies any similar pain in the past. The pain woke him from sleep. Denied any chest pain bowel or urinary complaints. No palpitations headache or difficulty breathing or lightheadedness. Patient had one episode of vomiting in ER. Denies any nausea, fevers or chills. In ER patient was noted to have cholelithiasis without cholecystitis on CAT scan and ultrasound. No free air in the abdomen or ascites. Common bile duct 5.4 mm on ultrasound. Negative Stout sign. Diffuse hepatic steatosis noted. Patient's received Zofran for vomiting. and Dilaudid and fentanyl for pain control. He is POD 1 cholecystectomy and IOC showed several stones. He has continued epigastric pain and nausea. Past Med Surg Social Fam HX - Past Medical History Medical history: GERD Additional medical history: hiatal hernia Psychiatric history: no psych history - Past Surgical History Additional surgical history: ear tubes - Social History Smoking Status: Current some day smoker Smokeless Tobacco Status: No Alcohol use: none Drug use: none - Family History Brother Hx Family Cardiac Disorders: Yes Review of Systems: GI: as per [id number] GENERAL: denies fever, has some chills EYES: denies yellow discoloration ENT: denies pain with swallowing or difficulty swallowing CARDIO: denies chest pain, palpitations RESP: No Shortness of breath with exertion : denies change in color of urine NEURO: denies any weakness HEME: Denies any bruising MS: denies joint pain, joint swelling or back pain. DERM: denies rash or itching PSYCH: Denies history of anxiety or depression - Constitutional Vitals: Temp Pulse Resp BP Pulse Ox 98.6 F 82 15 110/74 95 03/27/18 10:41 03/27/18 10:41 03/27/18 10:41 03/27/18 10:41 03/27/18 10:41 Exam: CONSTITUTIONAL:~alert, appears to be in pain~HEAD:~normocephalic.~EYES:~no jaundice.~NECK:~no obvious swelling.~HEART:~regular rate and rhythm, no murmurs. ~LUNGS:~bilateral good air entry.~ABDOMEN:~distended, tender, no masses pulpable , no organomegaly, laproscopic incisions without redness or drainage.~RECTAL EXAM:~Deferred.~EXTREMITIES:~no clubbing, cyanosis or edema.~SKIN:~no stigmata of chronic liver disease.~NEUROLOGIC:~no obvious focal defect.~~~~ Results - Labs CBC & Chem 7: 03/26/18 07:02 03/27/18 05:17 Labs: Last Result Calcium 8.7 mg/dL (8.6-10.3) 03/27/18 05:17 Triglycerides 142 mg/dL (< 150) 03/26/18 07:02 Entire Visit Hgb 16.6 g/dL (12.9-16.9) 03/26/18 07:02 Hct 51.2 % (37.5-50.1) H 03/26/18 07:02 Total Bilirubin 0.7 mg/dL (0.3-1.0) 03/27/18 05:17 AST 68 Units/L (13-39) H 03/27/18 05:17 ALT 93 Units/L (7-52) H 03/27/18 05:17 Lipase 24 Units/L (11-82) 03/26/18 07:02 - Impressions Impressions Cholangiogram,Operative 03/26/18 19:15 IMPRESSION: Bile duct dilatation with suggestion of distal CBD choledocholithiasis. RECOMMENDATIONS: Further evaluation with MRCP. D/ / Julia Elise MD / Julia Elise MD Interpreting Provider: Julia Elise MD Consult Discharge Plan - Plan Referrals: NONE,PCP [Primary Care Provider] - Mari León [Family Provider] - <KathyPeyton - Last Filed: 03/27/18 14:50> Date of Encounter: 03/27/18 Time of Encounter: 13:00 - Time Spent With Patient Total time spent is greater than 50% in coordination of care (as documented) at patient's floor/unit and/or counseling patient: GI History of Present Illness - Data of Consult Requesting Physician: Ben Nagy MD - Consult Narrative History of present illness: Mr. Stacy is a 37 year old male - Constitutional Vitals: Temp Pulse Resp BP Pulse Ox 98.6 F 89 15 110/74 93 03/27/18 10:41 03/27/18 13:46 03/27/18 13:46 03/27/18 10:41 03/27/18 13:46 Results - Labs CBC & Chem 7: 03/26/18 07:02 03/27/18 05:17 Labs: Last Result Calcium 8.7 mg/dL (8.6-10.3) 03/27/18 05:17 Triglycerides 142 mg/dL (< 150) 03/26/18 07:02 Entire Visit Hgb 16.6 g/dL (12.9-16.9) 03/26/18 07:02 Hct 51.2 % (37.5-50.1) H 03/26/18 07:02 Total Bilirubin 0.7 mg/dL (0.3-1.0) 03/27/18 05:17 AST 68 Units/L (13-39) H 03/27/18 05:17 ALT 93 Units/L (7-52) H 03/27/18 05:17 Lipase 24 Units/L (11-82) 03/26/18 07:02 - Impressions Impressions Cholangiogram,Operative 03/26/18 19:15 IMPRESSION: Bile duct dilatation with suggestion of distal CBD choledocholithiasis. RECOMMENDATIONS: Further evaluation with MRCP. D/ / Julia Elise MD / Julia Elise MD Interpreting Provider: Julia Elise MD Cath/Invasive Procedure 03/27/18 00:00 IMPRESSION: Fluoroscopy provided intraprocedural EP for balloon sweep of the common bile duct for choledocholithiasis. D/ / Carlos Arrieta MD / Carlos Arrieta MD Interpreting Provider: Carlos Arrieta MD - Attending Attestation I have personally performed a face to face evaluation on this patient. I have reviewed and agree with the care plan. History and Exam by me shows: seen. Patient complaining of upper abdominal pain on examination patient is morbidly obese. Assessment: Patient with status post GB surgery now with CBD stones with mildly abnormal LFTs. REC: ERCP today
--- NOTE | 2018-03-27 13:11 | Anesthesia Evaluation PreOp ---
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 Any Significant HX Other Medical History: Other (obesity BMI 51, choledocholithiasis) Anesthesia History: No Prior Anesthetic Complications, Past Anesthesia (charlene ) Alcohol Use: none Drug use: none Medications and Allergies Loratadine [Claritin] 10 mg PO DAILY 03/26/18 [History] Multivitamin [One Daily Multivitamin] 1 tab PO DAILY 03/26/18 [History] Naproxen Sodium [Aleve] 440 mg PO QAM 03/26/18 [History] Omeprazole Magnesium [Prilosec Otc] 20 mg PO DAILY 03/26/18 [History] guaiFENesin [Guaifenesin] 400 mg PO DAILY 03/26/18 [History] 3 Allergy/AdvReac Type Severity Reaction Status Date / Time Sulfa (Sulfonamide AdvReac Hives Verified 03/26/18 12:11 Antibiotics) - Meds/Allergy Pre-op Review Medications Reviewed: Yes Allergies Reviewed: Yes Beta Blockers on Current Med List: No Anesthesia Results - Labs 03/26/18 07:02 03/27/18 05:17 - Imaging EKG: report reviewed, image reviewed Anesthesia Exam Vital Signs/O2 Sat/Glucose, Most Recent Temp Pulse Resp BP Pulse Ox 98.6 F 82 15 110/74 95 03/27/18 10:41 03/27/18 10:41 03/27/18 10:41 03/27/18 10:41 03/27/18 10:41 Blood Glucose* 117 Height: 1.78 m Weight: 162 kg NPO (# of Hours): > 8 hr - HEENT Pupil (Motor): Pupils equal Mallampati: III Teeth: Normal Oral Opening: Less than or equal to 3 - ASSOCIATE PROFESSOR OF ENGINEERING LOC: Oriented ASSOCIATE PROFESSOR OF ENGINEERING Motor: Normal RUE, Normal LUE, Normal RLE, Normal LLE, Normal Face ASSOCIATE PROFESSOR [employer] ENGINEERING Sensory: Normal: RUE, LUE, RLE, LLE, Face - Cardiac Rhythm: Regular Murmur: None - Pulmonary Breath Sounds: bilateral Clear Respiratory Effort: Symmetrical Anesthesia Assess/Plan ASA Score: 3 Modified Marsha Scale for Level of Consciousness: Cooperative, oriented, and tranquil Anesthetic Plan: General Monitoring Plan: Standard Monitors Recovery Plan: PACU
[2018-03-27] MEDS: Ringers Solution, Lactated 1,000 ML IVC SCH (13:47)
[2018-03-27] MEDS ORDERED: Indomethacin 50 MG SUPP.RECT RC ONE (14:08)
[2018-03-27] MEDS ORDERED: Ondansetron 4 MG/2 ML VIAL IVP ONE (14:18)
[2018-03-27] MEDS ORDERED: *HR* Labetalol 20 MG/4 ML SYRINGE IVP PRN (14:18)
[2018-03-27] MEDS ORDERED: *HR* Promethazine 25 MG/ML VIAL IVP PRN (14:18)
[2018-03-27] MEDS ORDERED: Dexamethasone 4 MG/ML VIAL IVP ONE (14:18)
[2018-03-27] MEDS: *HR* HYDROmorphone (PF) 1 MG/ML SYRINGE IVP PRN ×3 (15:10→15:25)
--- NOTE | 2018-03-27 15:37 | Anesthesia Evaluation Post Op ---
Date of Encounter: 03/27/18 Time of Encounter: 15:35 - Vital Signs Vital Signs: Vital Signs/O2 Sat/Glucose, Most Current Temp Pulse Resp BP Pulse Ox 03/27/18 15:32 81 12 148/92 94 03/27/18 15:22 76 12 158/99 94 03/27/18 15:12 97.8 F 90 14 153/99 91 03/27/18 15:02 87 14 153/90 92 03/27/18 14:52 83 14 134/101 97 03/27/18 14:42 98.6 F 93 14 139/99 96 03/27/18 13:46 89 15 93 - Lungs Lungs: Clear Ascult./Percussion - Airway Airway: Non-obstructed - Cardiovascular Regular Rate - Mental Status Mental Status: Alert & Oriented, Answers Appropriately - Pain Pain Scale: 1 - Nausea Vomiting Nausea Vomiting: Not Present - Hydration Hydration: Ice chips - Discharge PostOp Status: Transfer Patient to floor
[2018-03-27] MEDS: 0.9 % Sodium Chloride 1,000 ML IVC SCH (16:31)
[2018-03-27 16:38] LABS: Hematocrit 41.5 % (37.5-50.1); Hemoglobin 13.5 g/dL (12.9-16.9); Mean Corpuscular HGB Conc 32.5 g/dL (31.6-35.5); Mean Corpuscular Hemoglobin 28.1 pg (28.0-33.3); Mean Corpuscular Volume 86.5 fL (83.0-100.0); Mean Platelet Volume 10.2 fL (9.4-12.4); Platelet Count 206 K/mcL (140-400); Red Cell Distribution Width 13.7 % (11.5-14.5)
[2018-03-28] MEDS: 0.9 % Sodium Chloride 1,000 ML IVC SCH (00:43)
[2018-03-28] MEDS: Acetaminophen IV 1,000 MG/100 ML INFUS..BTL IVPB SCH ×2 (01:17→06:39)
[2018-03-28] MEDS: Ketorolac 15 MG/ML VIAL IVP SCH ×2 (01:17→06:17)
[2018-03-28] MEDS: Piperacillin/Tazobactam 3.375 GM in 0.9 % Sodium Chloride Mini Bag 100 ML IVPB SCH ×2 (01:18→08:47)
[2018-03-28 06:08] LABS: Basophils % 0.1 %; Eosinophils % 0.1 %; Hematocrit 41.5 % (37.5-50.1); Hemoglobin 13.4 g/dL (12.9-16.9); Immature Granulocytes % 0.4 % (0-4); Lymphocytes # 2.6 K/mcL (0.6-4.6); Lymphocytes % 19.2 %; Mean Corpuscular HGB Conc 32.3 g/dL (31.6-35.5); Mean Corpuscular Hemoglobin 28.8 pg (28.0-33.3); Mean Corpuscular Volume 89.2 fL (83.0-100.0); Mean Platelet Volume 10.7 fL (9.4-12.4); Monocytes # 1.1 K/mcL (0.0-1.3); Monocytes % 8.3 %; Neutrophils # 9.7 K/mcL (1.6-8.9); Platelet Count 176 K/mcL (140-400); Red Blood Count 4.65 M/mcL (4.19-5.50); Red Cell Distribution Width 13.2 % (11.5-14.5); Segmented Neutrophils % 71.9 %
[2018-03-28] MEDS: *HR* Heparin 5,000 UNIT/ML VIAL SQ SCH (06:15)
[2018-03-28] MEDS: Pantoprazole 40 MG VIAL IVP SCH (06:17)
[2018-03-28 06:37] LABS: Alanine Aminotransferase 69 Units/L (7-52); Albumin 3.4 g/dL (3.5-5.7); Albumin/Globulin Ratio 1.4 (1.1-2.2); Alkaline Phosphatase 48 Units/L (34-104); Aspartate Amino Transferase 41 Units/L (13-39); BUN/Creatinine Ratio 16 (6-26); Bilirubin,Direct 0.1 mg/dL (0.0-0.2); Bilirubin,Indirect 0.5 mg/dL (0.0-1.2); Bilirubin,Total 0.6 mg/dL (0.3-1.0); Blood Urea Nitrogen 12 mg/dL (6-20); Calcium 8.1 mg/dL (8.6-10.3); Carbon Dioxide 24 mEq/L (23-29); Chloride 109 mEq/L (98-107); Globulin 2.4 g/dL (2.4-3.5); Glucose 110 mg/dL (70-105); Lipase 17 Units/L (11-82); Osmolality,Calculated 290 (280-300); Potassium 3.8 mEq/L (3.5-5.1); Sodium 140 mEq/L (136-145); Total Protein 5.8 g/dL (6.4-8.9); eGFR For Non-African Americans > 60 (> 60)
[2018-03-28] MEDS: Ringers Solution, Lactated 1,000 ML IVC SCH (07:55)
[2018-03-28] MEDS ORDERED: *HR* OxyCODONE/APAP 5/325 TABLET PO PRN (10:39)
--- NOTE | 2018-03-28 11:40 | Discharge Summary ---
<Jordan Aguiar R - Last Filed: 03/28/18 12:56> Orders not resulted at time of discharge: Pending orders 03/29/18 04:00 CBC no Diff [Complete Blood Count w/o Diff] [HEME] AM 0400 03/30/18 04:00 CBC no Diff [Complete Blood Count w/o Diff] [HEME] AM 0400 Date of Encounter: 03/28/18 Time of Encounter: 07:55 - Discharge Diagnosis (1) Cholelithiasis Priority: Primary Status: Acute Qualifiers: Cholelithiasis location: gallbladder Cholecystitis presence: without cholecystitis Biliary obstruction: without biliary obstruction Qualified Code(s): K80.20 - Calculus of gallbladder without cholecystitis without obstruction (2) Choledocholithiasis Priority: Primary Status: Acute (3) Morbid obesity Priority: Secondary Status: Acute General Surgery Exam Initial Vital Signs Temp Pulse Resp BP Pulse Ox 97.9 F 94 20 136/84 100 03/26/18 06:50 03/26/18 06:50 03/26/18 06:50 03/26/18 06:50 03/26/18 06:50 - General physical appearance well developed, well nourished, no distress, no pain, obese - Eyes PERRL, normal ocular movement - ENT normal mucosa, atraumatic, normocephalic - Neck trachea midline, no venous distension - Respiratory normal expansion, normal respiratory effort, clear to auscultation - Cardiovascular Cardiovascular exam: Present: RRR - Abdomen Abdomen general surgery: Present: bowel sounds present, soft, tender (expected post surgical tenderness). Absent: distended, guarding - Integumentary Integumentary general surgery: Present: warm and dry - Neurologic Present: CN 2-12 grossly intact - Musculoskeletal Present: normal posture - Psychiatric Psychiatric general surgery: Present: A&Ox3, speech is normal, memory intact - Hospital Course Hospital course: Mr. Stacy is a 37 year old male admitted for abdominal pain on 03/26/2018. CT and US studies of the abdomen identified gallstones without acute cholecystitis. Patient was experiencing pain out of proportion to imaging findings. Patient was started on IVF, pain medication, and NPO for anticipated cholecystectomy. Patient was taken to the operating room by Dr. Nagy for robotic assisted laparoscopic cholecystectomy and cholangiogram on 03/26/2018. He tolerated the procedure well. Filling defect was noted within the CBD on cholangiogram, and patient continued to experience pain worse than expected. GI was consulted and patient remained npo for possible ERCP. Patient was taken for ERCP with Dr. Chavez on 03/27/2018. Stones were removed from the CBD without stent placement. Patient doing well today and progressing back to baseline. Vital signs within normal limits, afebrile. Tolerating regular diet without nausea or vomiting. Pain is well controlled since surgery. Ambulating and voiding without difficulty or assistance. Patient transitioned to oral pain medication and antibiotics for anticipated discharge. Patient is stable and ready for discharge today. Will follow up with surgery on Apr.07 at 1:30pm. Continue antibiotic for 5 more days. - Time Spent with Patient Total time spent providing and/or coordinating discharge services: - Discharge Medications Home Medications: Loratadine [Claritin] 10 mg PO DAILY 03/26/18 [History] Multivitamin [One Daily Multivitamin] 1 tab PO DAILY 03/26/18 [History] Naproxen Sodium [Aleve] 440 mg PO QAM 03/26/18 [History] Omeprazole Magnesium [Prilosec Otc] 20 mg PO DAILY 03/26/18 [History] guaiFENesin [Guaifenesin] 400 mg PO DAILY 03/26/18 [History] Amoxicillin/Clavulanate [Augmentin] 875 mg PO BIDWM 5 Days #10 tablet 03/28/18 [ Rx] Docusate [Colace] 100 mg PO BID #30 capsule 03/28/18 [Rx] Ondansetron HCl [Zofran] 4 mg PO Q8HR PRN #7 tab 03/28/18 [Rx] OxyCODONE/APAP 5/325 [Percocet 5/325 MG] 1 each PO Q6HR PRN 5 Days #14 tablet [Rx] Allergies/Adverse Reactions: 3 Allergy/AdvReac Type Severity Reaction Status Date / Time Sulfa (Sulfonamide AdvReac Hives Verified 03/26/18 12:11 Antibiotics) Date of admission: 03/26/18 13:14 Primary care physician: PCP NONE Consults: 03/26/18 14:39 Consult to Pastoral Services [CONS] Routine Comment: 03/27/18 08:46 Consult to Gastroenterology [CONS] Stat Consulting Provider: [facility] Reason for Consult: Filling defect on IOC, possible need for ERCP Time Notified: 08:46 Call Completed: Yes Discharging clinician: Jordan Aguiar Anticipated date of discharge: 03/28/18 Procedures and tests throughout hospitalization: Date of procedure: 03/26/18 Pre-op diagnosis: symptomatic cholelithiasis Post-op diagnosis: other (acute cholecystitis, choledocholithiasis) Procedure: robotic cholecystectomy with intraoperative cholangiogram Implants: none Complications:none Anesthesia: GETA Local Anesthetics: 0.5% Sensorcaine HCL SubQ (cc) Surgeon: Ben Nagy Was there an marketing operations assistant present: Yes Spring Inspector: Manda Shukla Estimated blood loss (cc): 50 Specimen: gallbladder and contents Condition: stable Disposition: PACU 03/27/[address] Chavez Labs on day of discharge: Labs from last 24 hours 03/28/18 03/28/18 03/27/18 05:45 05:45 16:20 WBC 13.4 H 14.4 H RBC 4.65 4.80 Hgb 13.4 13.5 D Hct 41.5 41.5 MCV 89.2 86.5 MCH 28.8 28.1 MCHC 32.3 32.5 RDW 13.2 13.7 Plt Count 176 206 MPV 10.7 10.2 Immature Gran % 0.4 Seg Neutrophils % 71.9 Lymphocytes % 19.2 Monocytes % 8.3 Eosinophils % 0.1 Basophils % 0.1 Neutrophils # 9.7 H Lymphocytes # 2.6 Monocytes # 1.1 Eosinophils # 0.0 Basophils # 0.0 Sodium 140 Potassium 3.8 Chloride 109 H Carbon Dioxide 24 BUN 12 Creatinine 0.76 Est GFR ( Amer) > 60 Est GFR (Non-Af Amer) > 60 BUN/Creatinine Ratio 16 Glucose 110 H POC Glucose Calculated Osmolality 290 Calcium 8.1 L Total Bilirubin 0.6 Direct Bilirubin 0.1 Indirect Bilirubin 0.5 AST 41 H ALT 69 H Alkaline Phosphatase 48 Serum Total Protein 5.8 L Albumin 3.4 L Globulin 2.4 Albumin/Globulin Ratio 1.4 Lipase 17 03/27/18 05:54 WBC RBC Hgb Hct MCV MCH MCHC RDW Plt Count MPV Immature Gran % Seg Neutrophils % Lymphocytes % Monocytes % Eosinophils % Basophils % Neutrophils # Lymphocytes # Monocytes # Eosinophils # Basophils # Sodium Potassium Chloride Carbon Dioxide BUN Creatinine Est GFR ( Amer) Est GFR (Non-Af Amer) BUN/Creatinine Ratio Glucose POC Glucose 129 H Calculated Osmolality Calcium Total Bilirubin Direct Bilirubin Indirect Bilirubin AST ALT Alkaline Phosphatase Serum Total Protein Albumin Globulin Albumin/Globulin Ratio Lipase - Impressions ITS Impressions Cholangiogram,Operative 03/26/18 19:15 IMPRESSION: Bile duct dilatation with suggestion of distal CBD choledocholithiasis. RECOMMENDATIONS: Further evaluation with MRCP. D/ / Julia Elise MD / Julia Elise MD Interpreting Provider: Julia Elise MD Cath/Invasive Procedure 03/27/18 00:00 IMPRESSION: Fluoroscopy provided intraprocedurally for balloon sweep of the common bile duct for choledocholithiasis. D/ / 03/27/2018 15:19:32 Carlos Arrieta MD / vinny Interpreting Provider: Carlos Arrieta MD - Patient Status Disposition: Home, Self-Care Condition: Good Functional capacity at discharge: independent ambulation Overall status at discharge: patient is progressing back to baseline - Discharge Instructions Instructions: Laparoscopic Cholecystectomy (DC), Endoscopic Retrograde Cholangiopancreatography (DC) Follow Up With: Arabella Melo CNP [Advanced Practice Nurse] - 04/07/18 1:30 pm Forms: Inpatient Work/School Release Additional Instructions: General Surgical Discharge Instructions 1. No pushing, pulling, or lifting greater than 15 lbs for 2-4 weeks (depending upon procedure). 2. You may shower beginning today, but no tub baths, soaking, or swimming for 2 weeks. 3. You may resume driving when you are off narcotics and are safe to react in a car. 4. Take ibuprofen every 8 hours for discomfort. If this does not relieve discomfort, you may take the as needed Percocet. Take narcotics as directed. Do not take more narcotics then directed and do not share your narcotics with any other person. Do not drink alcohol while on narcotics. 5. Take stool softeners (Colace) or a water based laxative (Miralax) while taking narcotics. You may hold for loose stools. 6. Report any fevers greater than 100.5F, increase abdominal discomfort, drainage that looks like pus, increased redness or pain at the surgical site, or any vomiting. 7. Report any pain in the calves, shortness of breath, or rapid heartbeat. 8. Follow-up in the office as directed. 9. If you were prescribed antibiotics, do not stop them without talking to your provider. - Diet and Activity Activity: increase activity as tolerated Diet: advance to your usual diet <Ben Nagy - Last Filed: 03/28/18 16:19> Date of Encounter: 03/28/18 - Discharge Diagnosis (1) Cholelithiasis Status: Acute Qualifiers: Cholelithiasis location: gallbladder Cholecystitis presence: without cholecystitis Biliary obstruction: without biliary obstruction Qualified Code(s): K80.20 - Calculus of gallbladder without cholecystitis without obstruction General Surgery Exam Initial Vital Signs Temp Pulse Resp BP Pulse Ox 97.9 F 94 20 136/84 100 03/26/18 06:50 03/26/18 06:50 03/26/18 06:50 03/26/18 06:50 03/26/18 06:50 - Hospital Course Hospital course: Mr. Stacy is a 37 year old male - Time Spent with Patient Total time spent providing and/or coordinating discharge services: Date of admission: 03/28/18 14:05 Primary care physician: PCP NONE - Attending Attestation I have personally seen and examined the patient. I have reviewed pertinent labs , imaging, progress notes, including this one. I agree with the above assessment and plan and wish to include the following... okay for d/c f/u in two weeks 5 days total of ABX
[2018-03-28 14:00] VITALS: BP 119/76
[2018-03-29] MEDS ORDERED: Loratadine 10 MG TABLET PO SCH (09:00)
== END 2018-03-28 16:11 | disposition home or self-care (01) | DRG 418 ==
LOC: EMEROOARM 06:42 → 3ANU 06:42 → SUATTDRO 13:14 → 3ANU 13:51
PROVIDERS: ADMIT Surgery; ATTEND Internal Medicine